=== PATIENT | female | born 1970 | race Caucasian/White ===

== ENCOUNTER 2016-08-14 23:40 | Emergency (ER) | payer OTHER ==
--- NOTE | 2016-08-15 02:23 | ED CLINICAL REPORT ---
Clinical Report - Physicians/Mid Levels [facility] [address] [place] [address] 08/14/2016 23:41 Patient: DESTINEE OROPEZA Time Seen: 00:51 Aug 15 2016. Arrived- By private vehicle. Historian- patient. CPT: ER phys charges level 4 (#[id number]). HISTORY OF PRESENT ILLNESS Chief Complaint: VOMITING. This started today 7 times today. Has not kept anything down today. Typical spell that she has beenhaving for the past 8 years. and is still present. No recent travel. She has had nausea and vomiting. No diarrhea, black stools, bloody stools, abdominal pain or constipation. No history of possible bad food exposure or known contact with a sick individual. Has not recently been on antibiotics. The illness is described as moderate. Similar symptoms previously: Many times, as bad. ( Has not seen a Doctor for it but notes it has been going on since 2007. That it will last a few days then go away. It randomly happens . There is no pain, just sudden emesis.). Recent medical care: Not recently seen/assessed. REVIEW OF SYSTEMS No fever, muscle aches, difficulty with urination or urination or dark urine. No dizziness, sore throat or throat or cough. No chest pain or pain, difficulty breathing or skin rash or rash. No jaundice, chills, fever, cough or difficulty breathing. No pedal edema, abdominal pain, black stools, bloody stools or constipation. No diarrhea, nausea, vomiting, urinary frequency or hematuria. No alteration in mental status, head injury, diabetic symptoms or easy bruising. The patient has had anorexia and weakness. All systems otherwise negative, except as recorded above. PAST HISTORY Hx of narcotic abuse but is now on methadone. Has not missed any doses. Medications: Methadone HCl Oral. Allergies: No Known Drug Allergy. SOCIAL HISTORY Light tobacco smoker (cigarette)- less than 1/2 a pack per day. History of drug use: marijuana. No alcohol use. ADDITIONAL NOTES The nursing notes have been reviewed. PHYSICAL EXAM Vital Signs: 08/14/2016 23:43 BP: 133/81. HR: 94. RR: 16. O2 saturation: 100%. Temp: 97.6 F. Pain level now: 0/10. Appearance: Alert. No acute distress. Eyes: Pupils equal, round and reactive to light. Eyes normal inspection. ENT: Nose normal. Dry mucous membranes present. Pharynx normal. Neck: Normal inspection. CVS: Normal heart rate and rhythm. Heart sounds normal. Pulses normal. Respiratory: No respiratory distress. Breath sounds normal. Abdomen: Soft and nontender. Back: Normal inspection. Skin: Skin warm. Normal skin color. No rash. Extremities: Extremities exhibit normal ROM. No lower extremity edema. Neuro: Oriented X 3. No motor deficit. No sensory deficit. LABS, X-RAYS, AND EKG Laboratory Tests: UA-Culture if indicated: (JEREMY: 08/15/2016 00:00) ( [facility] 08/15/2016 01:13) Final results Test Result Flag Units (Reference) URINE COLOR YELLOW URINE APPEARANCE SLIGHTLY HAZY URINE GLUCOSE NEGATIVE (NEGATIVE) URINE BILIRUBIN 1+ (NEGATIVE) URINE KETONE NEGATIVE (NEGATIVE) URINE SPECIFIC GRAVITY >= 1.030 (1.010-1.030) URINE PH 5.5 (5.0-8.0) URINE PROTEIN NEGATIVE (NEGATIVE) URINE UROBILINOGEN 0.2 EU/dL (0.2-1.0) URINE NITRITE POSITIVE (NEGATIVE) URINE BLOOD NEGATIVE (NEGATIVE) URINE LEUK ESTERASE NEGATIVE (NEGATIVE) URINE RBC 0-1 rbc/hpf (0-1) URINE WBC 1-3 wbc/hpf (0-1) URINE EPITHELIAL CELLS RARE EPI/hpf (0-5) URINE BACTERIA MANY (4+) (NONE SEEN) URINE COMMENT CULTURE INDICATED URINE CULTURES ARE SET-UP BASED ON THE FOLLOWING CRITERIA:POSITIVE NITRITEPOSITIVE LEUKOCYTE ESTERASEGREATER THAN 10 WHITE BLOOD CELLSMODERATE (2+) OR GREATER BACTERIA Urine: (JEREMY: 08/15/2016 00:00) ( [facility] 08/15/2016 01:14) Final results Test Result Flag Units (Reference) URINE NEGATIVE CBC w Diff: (JEREMY: 08/15/2016 01:19) ( [facility] 08/15/2016 01:36) Final results Test Result Flag Units (Reference) WHITE BLOOD COUNT 9.7 K/uL (4.5-11.5) RED BLOOD COUNT 4.71 M/uL (4.00-5.20) HEMOGLOBIN 14.3 gm/dL (12.0-16.0) HEMATOCRIT 42.0 % (36.0-46.0) MEAN CELL VOLUME 89 fL (80-100) MEAN CORPUSCULAR HGB 30 pg (26-34) MEAN CORPUSCULAR HGB CONC 34 g/dL (31-37) RED CELL DISTRIBUTION WIDTH 13.1 % (11.6-14.8) PLATELET COUNT 271 K/uL (150-400) NEUTROPHIL % 77.7 H % (50-75) LYMPH % 17.2 L % (25-40) MONO % 3.6 % (3-14) EOSINOPHIL % 1.3 % (0-4) BASOPHIL % 0.2 % (0-2) Urine Drug Screen: (JEREMY: 08/15/2016 00:00) ( [facility] 08/15/2016 01:33) Final results Test Result Flag Units (Reference) AMPHETAMINE/METHAMPHETAMINE POSITIVE H (NEGATIVE) BARBITURATE NEGATIVE (NEGATIVE) BENZODIAZEPINE NEGATIVE (NEGATIVE) CANNABINOID POSITIVE H (NEGATIVE) COCAINE NEGATIVE (NEGATIVE) ECSTASY POSITIVE H (NEGATIVE) METHADONE POSITIVE H (NEGATIVE) OPIATE POSITIVE H (NEGATIVE) The urine drug screen is a qualitative screening test fordrug overdose and abuse. All screen results should beconsidered as presumptive.Drugs screened for are as follows:BenzodiazepinesCocaineAmphetamines/MetamphetaminesTHC (Tetrahydrocannabinol)OpiatesBarbituratesEcstasyMethadonePositive results are unconfirmed. For confirmation, notifythe lab for the specimen to be sent to the reference lab.All confirmations must be performed by a differentmethodology.The ingestion of natural herbal and plant productscontaining Ephedra/Ephedra metabolites can produce in urineone or more substances capable of cross reacting withamphetamine/methamphetamine immunoassays. These testsprovide a preliminary result only. A more specificalternative chemical method must be used to obtain aconfirmed analytical result. Lipase: (JEREMY: 08/15/2016 01:19) ( [facility] 08/15/2016 01:50) Final results Test Result Flag Units (Reference) LIPASE 193 U/L (73-393) THYROID STIMULATING HORMONE 5.159 H uIU/mL (0.34-3.74) CHEM 13 PANEL: (JEREMY: 08/15/2016 01:19) ( Msg[facility]cv[facility] 08/15/2016 02:01) Final results Test Result Flag Units (Reference) GLUCOSE 86 mg/dL (70-110) BUN 14 mg/dL (7-18) CREATININE 0.9 mg/dL (0.6-1.3) Estimated GFR >60 mL/min Estimated GFR- >60 mL/min Note: Persistent reduction over 3 months in eGFR<60 mL/min/1.73 m2 defines CKD. Patients with eGFR values>=60 mL/min/1.73 m2 may also have CKD if evidence ofpersistent proteinuria. Additional information may be foundat www.kidney.org. SODIUM 137 mmol/L (136-145) POTASSIUM 3.8 mmol/L (3.5-5.1) CHLORIDE 102 mmol/L (98-107) CARBON DIOXIDE 27 mmol/L (21-32) CALCIUM 8.2 L mg/dL (8.5-10.1) TOTAL PROTEIN 6.8 g/dL (6.4-8.2) ALBUMIN 3.3 g/dL (3.3-5.0) BILIRUBIN, TOTAL 0.5 mg/dL (0.0-1.0) ALKALINE PHOSPHATASE 59 U/L (46-116) AST (SGOT) 14 L U/L (15-37) ALT (SGPT) 23 U/L (12-78) MAGNESIUM 1.6 L mg/dL (1.8-2.4) CPK 45 U/L (24-260) TROPONIN I <0.05 L ng/mL (0.00-1.5) TROPONIN REFERENCE RANGE:<0.1 NEGATIVE0.1-1.5 INDETERMINANT>1.5 POSITIVE . PROGRESS AND PROCEDURES Course of Care: Zofran 4 mg ODT Taking po fluids well in ER. Patient is stable. Patient/family counseled. Disposition: Discharged. Condition: stable. CLINICAL IMPRESSION Acute urinary tract infection with cystitis. Substance abuse problems: abuse of cannabis, opiates, methamphetamine and hallucinogens. Vomiting with nausea (Intermittent.). Dehydration. INSTRUCTIONS No strenuous activity. Rest. Drink plenty of fluids for the next 48 hours until better. Warnings: Further evaluation is necessary. GENERAL WARNINGS: Return or contact your physician immediately if your condition worsens or changes unexpectedly, if not improving as expected, or if other problems arise. Your Current Medications: CONTINUE TAKING THE FOLLOWING MEDICATIONS: Methadone HCl Oral. Prescription Medications: Zofran (orally disintegrating tablets) 4 mg: take 1 orally every 6 hours as needed for nausea. Dispense ten (10). No refill. Substitution is permissible. Trimethoprim-Sulfamethoxazole DS: take 1 tablet orally every 12 hours for 7 days. Dispense fourteen (14). No refills. Understanding of the discharge instructions verbalized by patient. Follow-up with: [facility], , , [address], , [place], [address] Follow up in two days if not better. (Electronically signed by Stephen Jesus MD 08/15/2016 8:51)
--- NOTE | 2016-08-15 02:23 | ED ORDER SUMMARY ---
..... Patient: DESTINEE OROPEZA OrderSheet [facility] VisitID: [id number] [address] [place] [address] 46y, F Registration Date/Time: 08/14/2016 ORDER SHEET Weight: 63.5 kg (stated) Allergies: No Known Drug Allergy GENERAL ORDERS: - (po challenge when able.) (01:00 08/15/2016 Janeen UMAÑA) (Ack 1:03 AMcQuoid ER Tech1) (1:19 HSoule) Lipase Urgent (01:08/15/2016 Janeen UMAÑA) (Ack 1:03 AMcQuoid ER Tech1) (1:22 AMcQuoid ER Tech1) TSH Urgent (:08/15/2016 Janeen UMAÑA) (Ack 1:03 AMcQuoid ER Tech1) (1:22 AMcQuoid ER Tech1) Cardiac Panel Stat (:02 08/15/2016 Janeen UMAÑA) (Ack 1:03 AMcQuoid ER Tech1) (1:22 AMcQuoid ER Tech1) UA-Culture if indicated Urgent (01:02 08/15/2016 Janeen UMAÑA) (Ack 1:03 AMcQuoid ER Tech1) (1:19 HSoule) Urine Drug Screen Urgent (01:08/15/2016 Janeen UMAÑA) (Ack 1:03 AMcQuoid ER Tech1) (1:22 AMcQuoid ER Tech1) Urine Urgent (01:02 08/15/2016 Janeen UMAÑA) (Ack 1:03 AMcQuoid ER Tech1) (1:19 HSoule) MEDICATION ORDERS: Zofran ODT PO 4 mg (NOW) (01:00 08/15/2016 Janeen UMAÑA) (Ack 1:01 HSoule) (1:05 HSoule) Bactrim DS PO (Tablet 800-160 mg) 1 tab (NOW) (02:27 08/15/2016 Janeen UMAÑA) (Ack 2:27 HSoule) (2:37 HSoule) IV FLUIDS: ORDER SHEET NOTES: [Electronically signed by Kathrine Mueller (02:50 08/15/2016)] [Electronically signed by Stephen Jesus MD (08:51 08/15/2016)] [Electronically locked/signed by Kathrine Mueller (02:50 08/15/2016)]
--- NOTE | 2016-08-15 02:23 | ED ORDER SUMMARY ---
..... Patient: DESTINEE OROPEZA OrderSheet [facility] VisitID: [id number] [address] [place] [address] 46y, F Registration Date/Time: 08/14/2016 ORDER SHEET Weight: 63.5 kg (stated) Allergies: No Known Drug Allergy GENERAL ORDERS: - (po challenge when able.) (01:00 08/15/2016 Janeen UMAÑA) (Ack 1:03 AMcQuoid ER Tech1) (1:19 HSoule) Lipase Urgent (01:08/15/2016 Janeen UMAÑA) (Ack 1:03 AMcQuoid ER Tech1) (1:22 AMcQuoid ER Tech1) TSH Urgent (:08/15/2016 Janeen UMAÑA) (Ack 1:03 AMcQuoid ER Tech1) (1:22 AMcQuoid ER Tech1) Cardiac Panel Stat (:02 08/15/2016 Janeen UMAÑA) (Ack 1:03 AMcQuoid ER Tech1) (1:22 AMcQuoid ER Tech1) UA-Culture if indicated Urgent (01:02 08/15/2016 Janeen UMAÑA) (Ack 1:03 AMcQuoid ER Tech1) (1:19 HSoule) Urine Drug Screen Urgent (01:08/15/2016 Janeen UMAÑA) (Ack 1:03 AMcQuoid ER Tech1) (1:22 AMcQuoid ER Tech1) Urine Urgent (01:02 08/15/2016 Janeen UMAÑA) (Ack 1:03 AMcQuoid ER Tech1) (1:19 HSoule) MEDICATION ORDERS: Zofran ODT PO 4 mg (NOW) (01:00 08/15/2016 Janeen UMAÑA) (Ack 1:01 HSoule) (1:05 HSoule) Bactrim DS PO (Tablet 800-160 mg) 1 tab (NOW) (02:27 08/15/2016 Janeen UMAÑA) (Ack 2:27 HSoule) (2:37 HSoule) IV FLUIDS: ORDER SHEET NOTES: [Electronically signed by Kathrine Mueller (02:50 08/15/2016)] [Electronically signed by Stehpen Jesus MD (08:51 08/15/2016)] [Electronically locked/signed by Kathrine Mueller (02:50 08/15/2016)]
--- NOTE | 2016-08-15 02:23 | ED NURSING NOTES ---
Clinical Report - Nurses [facility] [address] [place] [address] 08/14/2016 23:41 Patient: DESTINEE OROPEZA TRIAGE Triage time 23:43 Aug 14 2016. Chief Complaint: VOMITING. SEPSIS SCREEN: Sepsis Screen: negative. Negative (no infection suspected/documented). Heart rate greater than 90. MADI COMA SCORE: [place] Coma Scale: 15- eyes open spontaneously (4); best verbal response- oriented x 4 (5); best motor response- obeys commands (6). --23:56 Kathrine Mueller 23:43 08/14/16. BP: 133/81. HR: 94. RR: 16. O2 saturation: 100%. Temp: 97.6 F (oral). Pain level now: 0/10. --23:56 Kathrine Mueller. Weight: 63.5 kg stated. Height/Length: 68 inches Per Patient. BMI: 21.3. --23:53 Kathrine Mueller. Medications Methadone HCl Oral. --23:50 Kathrine Mueller. Allergies No Known Drug Allergy. --23:50 Kathrine Mueller. History Arrived by private vehicle. Historian: patient. Accompanied by family. Primary physician (Pt reports no PCP). ( Pt states she has been vomitting dark brown since this morning. Pt reports vomitting episodes for the last couple years which lasts for a few days at a time. Pt states she not currently nauseated.). She has had diarrhea (1 days). No nausea. Last oral intake by patient was (Pt reports PO fluids prior to arrival). PAST MEDICAL HX: Immunizations: up-to-date. Last normal menstrual period- 5 years ago. SOCIAL HX: Light tobacco smoker (cigarette)- less than 1/2 a pack per day. History of drug use: marijuana. No alcohol use. No infectious disease exposure. ABUSE ASSESSMENT: No report of abuse. FALL RISK ASSESSMENT: Fall risk assessment completed. No fall risk identified. NUTRITIONAL RISK ASSESSMENT: The nutritional risk assessment revealed no deficiencies. FUNCTIONAL ASSESSMENT: Functional assessment: no impairments noted. LEARNING NEEDS ASSESSMENT: The learning needs assessment revealed no barriers. SKIN INTEGRITY ASSESSMENT: Skin integrity risk assessment completed. No skin integrity risk identified. --23:56 Kathrine Mueller. PROBLEMS: Cervical Dysplasia. --23:52 Kathrine Mueller. ADDITIONAL SURGERIES: Leep Procedure. --23:52 Kathrine Mueller. Interventions ID band on patient. To treatment room. --23:56 Kathrine Mueller. PHYSICAL ASSESSMENT GENERAL / NEURO / PSYCH: Alert. Oriented X 4. Appears in no acute distress. HEENT: Mucous membranes are pink. RESPIRATORY: Respirations not labored. Breath sounds within normal limits. CVS: Normal sinus rhythm noted. GI / : Abdomen soft and nontender. SKIN: Skin is warm and dry. --23:56 Kathrine Mueller. NURSING PROGRESS NOTES Monitoring of patient in place. Patient gowned. Head of bed elevated. Reassurance given. Call light placed in reach. Side rails up x 1. Bed placed in lowest position. Brakes of bed on. Patient ready for evaluation- ED physician notified. --23:56 Kathrine Mueller 00:58 08/15/16. BP: 91/67. HR: 88. RR: 20. O2 saturation: 95% on room air. Pain level now: 0/10. --01:00 Kathrine Mueller 01:05 08/15/2016 Zofran ODT (Ondansetron) PO Oral Disintegrating Tablets 4 mg given. Allergies verified and confirmed 5 rights. --01:05 Kathrine Mueller 01:19. Checked patient name and birthdate: patient confirmed. Blood samples drawn from the right forearm by tech per protocol ; labeled in presence of the patient and sent to lab: jossie set. --01:21 McQuoid, Michelle, ER Tech1 01:50 08/15/16. BP: 97/63. HR: 80. O2 saturation: 96% on room air. --01:51 Kathrine Mueller 02:27 08/15/2016 Bactrim DS (Sulfamethoxazole-TMP DS) PO Tablets 1 tab given. Allergies verified and confirmed 5 rights. --02:37 Kathrine Mueller. DISPOSITION / DISCHARGE 02:38 08/15/16. Condition at departure: stable. No learning barriers present. Discharge instructions provided and reviewed with the patient. Reviewed medication(s) side effects, precautions, dosing and course information. Prescription(s) given to the patient. Reviewed need for increased fluid intake. Patient verbalized understanding. Written instructions provided in Malagasy. ( Follow up with PCP or [facility] in three days. Return if symptoms worsen. Increase fluids.). The patient was discharged by the physician. She was discharged home and accompanied by family. She left the Emergency Department ambulatory and via private vehicle. Family member driving. --02:39 Kathrine Mueller 02:37 08/15/16. BP: 104/72. HR: 65. RR: 20. O2 saturation: 95% on room air. Temp: 98.2 F (oral). Pain level now: 0/10. --02:39 Kathrine Mueller. Locked/Released at 08/15/2016 2:50 by Kathrine Mueller,
--- NOTE | 2016-08-15 02:23 | ED CLINICAL REPORT ---
Clinical Report - Physicians/Mid Levels [facility] [address] [place] [address] 08/14/2016 23:41 Patient: DESTINEE OROPEZA Time Seen: 00:51 Aug 15 2016. Arrived- By private vehicle. Historian- patient. CPT: ER phys charges level 4 (#[id number]). HISTORY OF PRESENT ILLNESS Chief Complaint: VOMITING. This started today 7 times today. Has not kept anything down today. Typical spell that she has beenhaving for the past 8 years. and is still present. No recent travel. She has had nausea and vomiting. No diarrhea, black stools, bloody stools, abdominal pain or constipation. No history of possible bad food exposure or known contact with a sick individual. Has not recently been on antibiotics. The illness is described as moderate. Similar symptoms previously: Many times, as bad. ( Has not seen a Doctor for it but notes it has been going on since 2007. That it will last a few days then go away. It randomly happens . There is no pain, just sudden emesis.). Recent medical care: Not recently seen/assessed. REVIEW OF SYSTEMS No fever, muscle aches, difficulty with urination or urination or dark urine. No dizziness, sore throat or throat or cough. No chest pain or pain, difficulty breathing or skin rash or rash. No jaundice, chills, fever, cough or difficulty breathing. No pedal edema, abdominal pain, black stools, bloody stools or constipation. No diarrhea, nausea, vomiting, urinary frequency or hematuria. No alteration in mental status, head injury, diabetic symptoms or easy bruising. The patient has had anorexia and weakness. All systems otherwise negative, except as recorded above. PAST HISTORY Hx of narcotic abuse but is now on methadone. Has not missed any doses. Medications: Methadone HCl Oral. Allergies: No Known Drug Allergy. SOCIAL HISTORY Light tobacco smoker (cigarette)- less than 1/2 a pack per day. History of drug use: marijuana. No alcohol use. ADDITIONAL NOTES The nursing notes have been reviewed. PHYSICAL EXAM Vital Signs: 08/14/2016 23:43 BP: 133/81. HR: 94. RR: 16. O2 saturation: 100%. Temp: 97.6 F. Pain level now: 0/10. Appearance: Alert. No acute distress. Eyes: Pupils equal, round and reactive to light. Eyes normal inspection. ENT: Nose normal. Dry mucous membranes present. Pharynx normal. Neck: Normal inspection. CVS: Normal heart rate and rhythm. Heart sounds normal. Pulses normal. Respiratory: No respiratory distress. Breath sounds normal. Abdomen: Soft and nontender. Back: Normal inspection. Skin: Skin warm. Normal skin color. No rash. Extremities: Extremities exhibit normal ROM. No lower extremity edema. Neuro: Oriented X 3. No motor deficit. No sensory deficit. LABS, X-RAYS, AND EKG Laboratory Tests: UA-Culture if indicated: (JEREMY: 08/15/2016 00:00) ( [facility] 08/15/2016 01:13) Final results Test Result Flag Units (Reference) URINE COLOR YELLOW URINE APPEARANCE SLIGHTLY HAZY URINE GLUCOSE NEGATIVE (NEGATIVE) URINE BILIRUBIN 1+ (NEGATIVE) URINE KETONE NEGATIVE (NEGATIVE) URINE SPECIFIC GRAVITY >= 1.030 (1.010-1.030) URINE PH 5.5 (5.0-8.0) URINE PROTEIN NEGATIVE (NEGATIVE) URINE UROBILINOGEN 0.2 EU/dL (0.2-1.0) URINE NITRITE POSITIVE (NEGATIVE) URINE BLOOD NEGATIVE (NEGATIVE) URINE LEUK ESTERASE NEGATIVE (NEGATIVE) URINE RBC 0-1 rbc/hpf (0-1) URINE WBC 1-3 wbc/hpf (0-1) URINE EPITHELIAL CELLS RARE EPI/hpf (0-5) URINE BACTERIA MANY (4+) (NONE SEEN) URINE COMMENT CULTURE INDICATED URINE CULTURES ARE SET-UP BASED ON THE FOLLOWING CRITERIA:POSITIVE NITRITEPOSITIVE LEUKOCYTE ESTERASEGREATER THAN 10 WHITE BLOOD CELLSMODERATE (2+) OR GREATER BACTERIA Urine: (JEREMY: 08/15/2016 00:00) ( [facility] 08/15/2016 01:14) Final results Test Result Flag Units (Reference) URINE NEGATIVE CBC w Diff: (JEREMY: 08/15/2016 01:19) ( [facility] 08/15/2016 01:36) Final results Test Result Flag Units (Reference) WHITE BLOOD COUNT 9.7 K/uL (4.5-11.5) RED BLOOD COUNT 4.71 M/uL (4.00-5.20) HEMOGLOBIN 14.3 gm/dL (12.0-16.0) HEMATOCRIT 42.0 % (36.0-46.0) MEAN CELL VOLUME 89 fL (80-100) MEAN CORPUSCULAR HGB 30 pg (26-34) MEAN CORPUSCULAR HGB CONC 34 g/dL (31-37) RED CELL DISTRIBUTION WIDTH 13.1 % (11.6-14.8) PLATELET COUNT 271 K/uL (150-400) NEUTROPHIL % 77.7 H % (50-75) LYMPH % 17.2 L % (25-40) MONO % 3.6 % (3-14) EOSINOPHIL % 1.3 % (0-4) BASOPHIL % 0.2 % (0-2) Urine Drug Screen: (JEREMY: 08/15/2016 00:00) ( Msg[facility] 08/15/2016 01:33) Final results Test Result Flag Units (Reference) AMPHETAMINE/METHAMPHETAMINE POSITIVE H (NEGATIVE) BARBITURATE NEGATIVE (NEGATIVE) BENZODIAZEPINE NEGATIVE (NEGATIVE) CANNABINOID POSITIVE H (NEGATIVE) COCAINE NEGATIVE (NEGATIVE) ECSTASY POSITIVE H (NEGATIVE) METHADONE POSITIVE H (NEGATIVE) OPIATE POSITIVE H (NEGATIVE) The urine drug screen is a qualitative screening test fordrug overdose and abuse. All screen results should beconsidered as presumptive.Drugs screened for are as follows:BenzodiazepinesCocaineAmphetamines/MetamphetaminesTHC (Tetrahydrocannabinol)OpiatesBarbituratesEcstasyMethadonePositive results are unconfirmed. For confirmation, notifythe lab for the specimen to be sent to the reference lab.All confirmations must be performed by a differentmethodology.The ingestion of natural herbal and plant productscontaining Ephedra/Ephedra metabolites can produce in urineone or more substances capable of cross reacting withamphetamine/methamphetamine immunoassays. These testsprovide a preliminary result only. A more specificalternative chemical method must be used to obtain aconfirmed analytical result. Lipase: (JEREMY: 08/15/2016 01:19) ( MsgRcvd 08/15/2016 01:50) Final results Test Result Flag Units (Reference) LIPASE 193 U/L (73-393) THYROID STIMULATING HORMONE 5.159 H uIU/mL (0.34-3.74) CHEM 13 PANEL: (JEREMY: 08/15/2016 01:19) ( MsgRcvd 08/15/2016 02:01) Final results Test Result Flag Units (Reference) GLUCOSE 86 mg/dL (70-110) BUN 14 mg/dL (7-18) CREATININE 0.9 mg/dL (0.6-1.3) Estimated GFR >60 mL/min Estimated GFR- >60 mL/min Note: Persistent reduction over 3 months in eGFR<60 mL/min/1.73 m2 defines CKD. Patients with eGFR values>=60 mL/min/1.73 m2 may also have CKD if evidence ofpersistent proteinuria. Additional information may be foundat www.kidney.org. SODIUM 137 mmol/L (136-145) POTASSIUM 3.8 mmol/L (3.5-5.1) CHLORIDE 102 mmol/L (98-107) CARBON DIOXIDE 27 mmol/L (21-32) CALCIUM 8.2 L mg/dL (8.5-10.1) TOTAL PROTEIN 6.8 g/dL (6.4-8.2) ALBUMIN 3.3 g/dL (3.3-5.0) BILIRUBIN, TOTAL 0.5 mg/dL (0.0-1.0) ALKALINE PHOSPHATASE 59 U/L (46-116) AST (SGOT) 14 L U/L (15-37) ALT (SGPT) 23 U/L (12-78) MAGNESIUM 1.6 L mg/dL (1.8-2.4) CPK 45 U/L (24-260) TROPONIN I <0.05 L ng/mL (0.00-1.5) TROPONIN REFERENCE RANGE:<0.1 NEGATIVE0.1-1.5 INDETERMINANT>1.5 POSITIVE . PROGRESS AND PROCEDURES Course of Care: Zofran 4 mg ODT Taking po fluids well in ER. Patient is stable. Patient/family counseled. Disposition: Discharged. Condition: stable. CLINICAL IMPRESSION Acute urinary tract infection with cystitis. Substance abuse problems: abuse of cannabis, opiates, methamphetamine and hallucinogens. Vomiting with nausea (Intermittent.). Dehydration. INSTRUCTIONS No strenuous activity. Rest. Drink plenty of fluids for the next 48 hours until better. Warnings: Further evaluation is necessary. GENERAL WARNINGS: Return or contact your physician immediately if your condition worsens or changes unexpectedly, if not improving as expected, or if other problems arise. Your Current Medications: CONTINUE TAKING THE FOLLOWING MEDICATIONS: Methadone HCl Oral. Prescription Medications: Zofran (orally disintegrating tablets) 4 mg: take 1 orally every 6 hours as needed for nausea. Dispense ten (10). No refill. Substitution is permissible. Trimethoprim-Sulfamethoxazole DS: take 1 tablet orally every 12 hours for 7 days. Dispense fourteen (14). No refills. Understanding of the discharge instructions verbalized by patient. Follow-up with: [facility], , , [address], , [place], [id number] Follow up in two days if not better. (Electronically signed by Stephen Jesus MD 08/15/2016 8:51)
--- NOTE | 2016-08-15 08:51 | ED MED RECONCILIATION SUMMARY ---
Patient: DESTINEE OROPEZA Medication Reconciliation Report [facility] VisitID: [id number] [address] [place] [address] 46y, F Registration Date/Time: 08/14/2016 Weight: 63.5 kg Height/Length: 68 in. BMI: 21.3 ALLERGIES: No Known Drug Allergy The patient's Home Medications are listed below: CONTINUE TAKING THE FOLLOWING MEDICATIONS: Methadone HCl Oral The source(s) of the original Home Medication information: Not obtained. The following Medications were given to the patient in the Emergency Department: Zofran ODT [PO] PO 4 mg, administered: 08/15/2016 1:05:00 AM Bactrim DS [PO] PO 1 tab, administered: 08/15/2016 2:27:00 AM The following Medications were prescribed to the patient: Zofran (orally disintegrating tablets) 4 mg: take 1 orally every 6 hours as needed for nausea. Dispense ten (10). No refill. Substitution is permissible. -- Stephen Jesus MD Trimethoprim-Sulfamethoxazole DS: take 1 tablet orally every 12 hours for 7 days. Dispense fourteen (14). No refills. -- Stephen Jesus MD
--- NOTE | 2016-08-15 08:51 | ED MAR SUMMARY ---
..... Medication Administration Record [facility] [address] [place] [address] Patient: DESTINEE OROPEZA Visit ID: [id number] 46y, F Weight: 63.5 kg Height/Length: 68 in BMI: 21.3 ALLERGIES: No Known Drug Allergy Given 01:05 08/15/2016 Kathrine Mueller, Medication Administered: ZOFRAN ODT [PO] (ONDANSETRON), Dose: 4 mg Oral Disintegrating Tablets PO. Medication Ordered: Zofran ODT PO 4 mg (NOW). Given 02:27 08/15/2016 Kathrine Mueller, Medication Administered: BACTRIM DS [PO] (SULFAMETHOXAZOLE-TMP DS), Dose: 1 tab Tablets PO. Medication Ordered: Bactrim DS PO (Tablet 800-160 mg) 1 tab (NOW).
--- NOTE | 2016-08-15 08:51 | ED DISCHARGE INSTRUCTIONS ---
Patient: DESTINEE OROPEZA General Instructions [facility] VisitID: [id number] [address] [place] [address] 46y, F Registration Date/Time: 08/14/2016 Acute urinary tract infection with cystitis. Substance abuse problems: abuse of cannabis, opiates, methamphetamine and hallucinogens. Vomiting with nausea (Intermittent.). Dehydration. INSTRUCTIONS No strenuous activity. Rest. Drink plenty of fluids for the next 48 hours until better. Warnings: Further evaluation is necessary. GENERAL WARNINGS: Return or contact your physician immediately if your condition worsens or changes unexpectedly, if not improving as expected, or if other problems arise. Your Current Medications: CONTINUE TAKING THE FOLLOWING MEDICATIONS: Methadone HCl Oral. Prescription Medications: Zofran (orally disintegrating tablets) 4 mg: take 1 orally every 6 hours as needed for nausea. Dispense ten (10). No refill. Substitution is permissible. Trimethoprim-Sulfamethoxazole DS: take 1 tablet orally every 12 hours for 7 days. Dispense fourteen (14). No refills. Understanding of the discharge instructions verbalized by patient. Follow-up with: [facility], , , [address], , [place], [address] Follow up in two days if not better. ADDITIONAL INFORMATION Bladder Infection,Female (Adult) A bladder infection ("cystitis" or "UTI") usually causes a constant urge to urinate and a burning when passing urine. Urine may be cloudy, smelly or dark. There may be pain in the lower abdomen. A bladder infection occurs when bacteria from the vaginal area enter the bladder opening (urethra). This can occur from sexual intercourse, wearing tight clothing, dehydration and other factors. Home Care: Drink lots of fluids (at least 6-8 glasses a day, unless you must restrict fluids for other medical reasons). This will force the medicine into your urinary system and flush the bacteria out of your body. Avoid sexual intercourse until your symptoms are gone. Avoid caffeine, alcohol and spicy foods. These can irritate the bladder. A bladder infection is treated with antibiotics. You may also be given Pyridium (generic = phenazopyridine) to reduce the burning sensation. This medicine will cause your urine to become a bright orange color. The orange urine may stain clothing. You may wear a pad or panty-liner to protect clothing. Preventing Future Infections: Always wipe from front to back after a bowel movement. Keep the genital area clean and dry. Drink plenty of fluids each day to avoid dehydration. Both sexual partners should wash before intercourse. Urinate right after intercourse to flush out the bladder. Wear cotton underwear and cotton-lined panty hose; avoid tight-fitting pants. If you are on control pills and are having frequent bladder infections, discuss with your doctor. Follow Up: Return to this facility or see your doctor if ALL symptoms are not gone after three days of treatment. Get Prompt Medical Attention if any of the following occur: Fever of 100.4F (38C) or higher, or as directed by your healthcare provider No improvement by the third day of treatment Increasing back or abdominal pain Repeated vomiting; unable to keep medicine down Weakness, dizziness or fainting Vaginal discharge Pain, redness or swelling in the labia (outer vaginal area) Ondansetron Oral disintegrating tablet What is this medicine? ONDANSETRON (on CARMELO se michael) is used to treat nausea and vomiting caused by chemotherapy. It is also used to prevent or treat nausea and vomiting after surgery. How should I use this medicine? These tablets are made to dissolve in the mouth. Do not try to push the tablet through the foil backing. With dry hands, peel away the foil backing and gently remove the tablet. Place the tablet in the mouth and allow it to dissolve, then swallow. While you may take these tablets with water, it is not necessary to do so. Talk to your youth advocate regarding the use of this medicine in children. Special care may be needed. What side effects may I notice from receiving this medicine? Side effects that you should report to your doctor or health chronic care nurse as soon as possible: allergic reactions like skin rash, itching or hives, swelling of the face, lips, or tongue breathing problems dizziness fast or irregular heartbeat feeling faint or lightheaded, falls fever and chills swelling of the hands and feet tightness in the chest Side effects that usually do not require medical attention (report to your doctor or health chronic care nurse if they continue or are bothersome): constipation or diarrhea headache What may interact with this medicine? Do not take this medicine with any of the following medications: -apomorphine -cisapride -dofetilide -dronedarone -pimozide -thioridazine -ziprasidone This medicine may also interact with the following medications: -carbamazepine -phenytoin -rifampicin -tramadol -other medicines that prolong the QT interval (cause an abnormal heart rhythm) What if I miss a dose? If you miss a dose, take it as soon as you can. If it is almost time for your next dose, take only that dose. Do not take double or extra doses. Where should I keep my medicine? Keep out of the reach of children. Store between 2 and 30 degrees C (36 and 86 degrees F). Throw away any unused medicine after the expiration date. What should I tell my health care provider before I take this medicine? They need to know if you have any of these conditions: heart disease history of irregular heartbeat liver disease low levels of magnesium or potassium in the blood an unusual or allergic reaction to ondansetron, granisetron, other medicines, foods, dyes, or preservatives or trying to get breast-feeding What should I watch for while using this medicine? Check with your doctor or health chronic care nurse as soon as you can if you have any sign of an allergic reaction. You have been given the following additional information: Bladder Infection, Female (Adult) Ondansetron Oral disintegrating tablet No strenuous activity. Rest. (Electronically signed by Stephen Jesus MD 08/15/2016 8:51)
--- NOTE | 2016-08-15 08:51 | ED MAR SUMMARY ---
..... Medication Administration Record [facility] [address] [place] [address] Patient: DESTINEE OROPEZA Visit ID: [id number] 46y, F Weight: 63.5 kg Height/Length: 68 in BMI: 21.3 ALLERGIES: No Known Drug Allergy Given 01:05 08/15/2016 Kathrine Mueller, Medication Administered: ZOFRAN ODT [PO] (ONDANSETRON), Dose: 4 mg Oral Disintegrating Tablets PO. Medication Ordered: Zofran ODT PO 4 mg (NOW). Given 02:27 08/15/2016 Kathrine Mueller, Medication Administered: BACTRIM DS [PO] (SULFAMETHOXAZOLE-TMP DS), Dose: 1 tab Tablets PO. Medication Ordered: Bactrim DS PO (Tablet 800-160 mg) 1 tab (NOW).
--- NOTE | 2016-08-15 08:51 | ED MED RECONCILIATION SUMMARY ---
Patient: DESTINEE OROPEZA Medication Reconciliation Report [facility] VisitID: [id number] [address] [place] [address] 46y, F Registration Date/Time: 08/14/2016 Weight: 63.5 kg Height/Length: 68 in. BMI: 21.3 ALLERGIES: No Known Drug Allergy The patient's Home Medications are listed below: CONTINUE TAKING THE FOLLOWING MEDICATIONS: Methadone HCl Oral The source(s) of the original Home Medication information: Not obtained. The following Medications were given to the patient in the Emergency Department: Zofran ODT [PO] PO 4 mg, administered: 08/15/2016 1:05:00 AM Bactrim DS [PO] PO 1 tab, administered: 08/15/2016 2:27:00 AM The following Medications were prescribed to the patient: Zofran (orally disintegrating tablets) 4 mg: take 1 orally every 6 hours as needed for nausea. Dispense ten (10). No refill. Substitution is permissible. -- Stephen Jesus MD Trimethoprim-Sulfamethoxazole DS: take 1 tablet orally every 12 hours for 7 days. Dispense fourteen (14). No refills. -- Stephen Jesus MD
--- NOTE | 2016-08-15 08:51 | ED DISCHARGE INSTRUCTIONS ---
Patient: DESTINEE OROPEZA General Instructions [facility] VisitID: [id number] [address] [place] [address] 46y, F Registration Date/Time: 08/14/2016 Acute urinary tract infection with cystitis. Substance abuse problems: abuse of cannabis, opiates, methamphetamine and hallucinogens. Vomiting with nausea (Intermittent.). Dehydration. INSTRUCTIONS No strenuous activity. Rest. Drink plenty of fluids for the next 48 hours until better. Warnings: Further evaluation is necessary. GENERAL WARNINGS: Return or contact your physician immediately if your condition worsens or changes unexpectedly, if not improving as expected, or if other problems arise. Your Current Medications: CONTINUE TAKING THE FOLLOWING MEDICATIONS: Methadone HCl Oral. Prescription Medications: Zofran (orally disintegrating tablets) 4 mg: take 1 orally every 6 hours as needed for nausea. Dispense ten (10). No refill. Substitution is permissible. Trimethoprim-Sulfamethoxazole DS: take 1 tablet orally every 12 hours for 7 days. Dispense fourteen (14). No refills. Understanding of the discharge instructions verbalized by patient. Follow-up with: [facility], , , [address], , [place], [address] Follow up in two days if not better. ADDITIONAL INFORMATION Bladder Infection,Female (Adult) A bladder infection ("cystitis" or "UTI") usually causes a constant urge to urinate and a burning when passing urine. Urine may be cloudy, smelly or dark. There may be pain in the lower abdomen. A bladder infection occurs when bacteria from the vaginal area enter the bladder opening (urethra). This can occur from sexual intercourse, wearing tight clothing, dehydration and other factors. Home Care: Drink lots of fluids (at least 6-8 glasses a day, unless you must restrict fluids for other medical reasons). This will force the medicine into your urinary system and flush the bacteria out of your body. Avoid sexual intercourse until your symptoms are gone. Avoid caffeine, alcohol and spicy foods. These can irritate the bladder. A bladder infection is treated with antibiotics. You may also be given Pyridium (generic = phenazopyridine) to reduce the burning sensation. This medicine will cause your urine to become a bright orange color. The orange urine may stain clothing. You may wear a pad or panty-liner to protect clothing. Preventing Future Infections: Always wipe from front to back after a bowel movement. Keep the genital area clean and dry. Drink plenty of fluids each day to avoid dehydration. Both sexual partners should wash before intercourse. Urinate right after intercourse to flush out the bladder. Wear cotton underwear and cotton-lined panty hose; avoid tight-fitting pants. If you are on control pills and are having frequent bladder infections, discuss with your doctor. Follow Up: Return to this facility or see your doctor if ALL symptoms are not gone after three days of treatment. Get Prompt Medical Attention if any of the following occur: Fever of 100.4F (38C) or higher, or as directed by your healthcare provider No improvement by the third day of treatment Increasing back or abdominal pain Repeated vomiting; unable to keep medicine down Weakness, dizziness or fainting Vaginal discharge Pain, redness or swelling in the labia (outer vaginal area) Ondansetron Oral disintegrating tablet What is this medicine? ONDANSETRON (on CARMELO se michael) is used to treat nausea and vomiting caused by chemotherapy. It is also used to prevent or treat nausea and vomiting after surgery. How should I use this medicine? These tablets are made to dissolve in the mouth. Do not try to push the tablet through the foil backing. With dry hands, peel away the foil backing and gently remove the tablet. Place the tablet in the mouth and allow it to dissolve, then swallow. While you may take these tablets with water, it is not necessary to do so. Talk to your molding line operator regarding the use of this medicine in children. Special care may be needed. What side effects may I notice from receiving this medicine? Side effects that you should report to your doctor or health workforce investment act career manager as soon as possible: allergic reactions like skin rash, itching or hives, swelling of the face, lips, or tongue breathing problems dizziness fast or irregular heartbeat feeling faint or lightheaded, falls fever and chills swelling of the hands and feet tightness in the chest Side effects that usually do not require medical attention (report to your doctor or health workforce investment act career manager if they continue or are bothersome): constipation or diarrhea headache What may interact with this medicine? Do not take this medicine with any of the following medications: -apomorphine -cisapride -dofetilide -dronedarone -pimozide -thioridazine -ziprasidone This medicine may also interact with the following medications: -carbamazepine -phenytoin -rifampicin -tramadol -other medicines that prolong the QT interval (cause an abnormal heart rhythm) What if I miss a dose? If you miss a dose, take it as soon as you can. If it is almost time for your next dose, take only that dose. Do not take double or extra doses. Where should I keep my medicine? Keep out of the reach of children. Store between 2 and 30 degrees C (36 and 86 degrees F). Throw away any unused medicine after the expiration date. What should I tell my health care provider before I take this medicine? They need to know if you have any of these conditions: heart disease history of irregular heartbeat liver disease low levels of magnesium or potassium in the blood an unusual or allergic reaction to ondansetron, granisetron, other medicines, foods, dyes, or preservatives or trying to get breast-feeding What should I watch for while using this medicine? Check with your doctor or health workforce investment act career manager as soon as you can if you have any sign of an allergic reaction. You have been given the following additional information: Bladder Infection, Female (Adult) Ondansetron Oral disintegrating tablet No strenuous activity. Rest. (Electronically signed by Stephen Jesus MD 08/15/2016 8:51)
== END 2016-08-15 02:35 | disposition home or self-care (01) ==
LOC: ED SRH 23:40
DX: R11.2 Nausea with vomiting, unspecified (principal); N30.00 Acute cystitis without hematuria; E86.0 Dehydration; F11.10 Opioid abuse, uncomplicated; F12.10 Cannabis abuse, uncomplicated; F17.210 Nicotine dependence, cigarettes, uncomplicated
CPT/HCPCS: 90004; 90100; 90148; 90469; 90616; 92235; 92610; 92720; 92760; 92761; 92762; 92763; 92764; 92765; 92766; 92767; 93070; 93140; 95059